=== PATIENT | female | born 1955 | race Caucasian/White ===

== ENCOUNTER 2018-10-01 16:47 | Emergency (ER) | payer MEDICARE, OTHER ==
[~2018-10-01] VITALS: Ht 165.1 cm; Wt 90.6 kg
[2018-10-01 17:21] VITALS: Ht 165.1 cm; Wt 90.6 kg
[2018-10-01] MEDS ORDERED: MED4DP PO (18:59)
[2018-10-01] MEDS ORDERED: BEN25 PO (18:59)
[2018-10-01] MEDS ORDERED: DEXAMETHASONE 10 MG/ML 1 ML INJ IM ONE (19:00)
[2018-10-01] MEDS ORDERED: DIPHENHYDRAMINE 25 MG CAP PO ONE (19:00)
[2018-10-01] MEDS ORDERED: FAMOTIDINE 20 MG TAB PO ONE (19:00)
[2018-10-01 20:10] VITALS: BP 142/79; PULSE 65; RESP 16
--- NOTE | 2018-10-01 20:10 | ERD ---
ER Documentation Chief Complaint Chief Complaint GENERALIZED BODY RASH X10 DAYS HPI 63-year-old female with no reported past medical history who presents with complaint of generalized body rash over the past 10 days. Rash is somewhat pruritic per patient but nontender. First noticed a rash on left lower abdomen which subsequently spread to his trunk, bilateral upper extremities, bilateral thighs. She otherwise denies fever, chills, new medication use, antibiotic use, new skin products use, shortness of breath, dyspnea, angioedema, chemical or toxic exposures, sick contacts at home. ROS All systems reviewed and are negative except as per history of present illness. Medications Home Meds Active Scripts Diphenhydramine Hcl* (Benadryl*) 25 Mg Cap, 25 MG PO Q6, #14 CAP Prov:JEUDINE,GETHO PA-C 10/01/18 Methylprednisolone* (Medrol* DOSE PACK) 4 Mg/Dose-Pack Tab.ds.pk, 4 MG PO . DIRECTED for 1 Day, PACKET Prov:JEUDINE,GETHO PA-C 10/01/18 Allergies Allergies: Coded Allergies: amoxicillin (Verified Allergy, Unknown, 10/01/18) PMhx/Soc Medical and Surgical Hx: pt denies Medical Hx, pt denies Surgical Hx Hx Alcohol Use: No Hx Substance Use: No Hx Tobacco Use: No Smoking Status: Never smoker FmHx Family History: No diabetes, No coronary disease, No other Physical Exam Vitals Vital Signs Date Temp Pulse Resp B/P (MAP) Pulse Ox O2 O2 Flow FiO2 Time Delivery Rate 10/01/18 97.5 60 16 163/97 96 17:21 (119) Physical Exam Const: No acute distress Head: Atraumatic Eyes: Normal Conjunctiva ENT: Normal External Ears, Nose and Mouth. Neck: Full range of motion. No meningismus. Resp: Clear to auscultation bilaterally Cardio: Regular rate and rhythm, no murmurs Abd: Soft, non tender, non distended. Normal bowel sounds Skin: No petechiae or rashes Back: No midline or flank tenderness Diffuse nonconfluent pinpoint erythematous blanching papular rash predominately over thorax, b/l UE extremities and b/l thighs. Pruritic, nontender, non discharge, some with overlying excoriations without evidence of cellulitis or superinfection. No tenderness to palpation. Negative nikolskys. No predominance over flexor creases. No involvement of nails or web spaces of hands. Ext: No cyanosis, or edema Neur: Awake and alert Psych: Normal Mood and Affect Results 24 hrs Current Medications Medications Dose Sig/Ridge Start Time Status Last (Trade) Ordered Route PRN Stop Time Admin Dose Reason Admin Famotidine 20 mg ONCE ONCE 10/01/18 DC 10/01/18 (Pepcid) PO 19:00 19:02 10/01/18 19:01 25 mg ONCE ONCE 10/01/18 DC 10/01/18 Diphenhydrami PO 19:00 19:02 ne HCl 10/01/18 19:01 (Benadryl) 10 mg ONCE ONCE 10/01/18 DC 10/01/18 Dexamethasone IM : 19:02 (Decadron) 10/01/18 19:01 Procedures/MDM This 63-year-old female presents with diffuse rash. Patient is afebrile with no reported systemic signs of infection. No reports of respiratory compromise. Symptoms likely secondary to allergic types nonspecific skin eruption. I have low suspicion for acute process warranting further emergent work-up or care. Patient symptoms improved with steroids and Benadryl. Patient instructed to follow-up with her PMD. Precautions explained in detail to patient as well as family member. DISPOSITION PLAN: We discussed follow up with the patient's primary care doctor within 24 to 48 hours. Patient counseled regarding my diagnostic impression and care plan. Prior to discharge all questions answered. Pt agrees with treatment plan and understands strict return precautions. Precautionary instructions provided including instructions to return to the ER if not improving or for any worsening or changing symptoms or concerns. Disclaimer: Inadvertent spelling and grammatical errors are likely due to EHR/dictation software use and do not reflect on the overall quality of patient care. Also, please note that the electronic time recorded on this note does not necessarily reflect the actual time of the patient encounter. Departure Diagnosis: Primary Impression: Rash and other nonspecific skin eruption Condition: Stable Patient Instructions: Self-Care for Skin Rashes Referrals: COMMUNITY CLINICS YOU HAVE RECEIVED A MEDICAL SCREENING EXAM AND THE RESULTS INDICATE THAT YOU DO NOT HAVE A CONDITION THAT REQUIRES URGENT TREATMENT IN THE EMERGENCY DEPARTMENT. FURTHER EVALUATION AND TREATMENT OF YOUR CONDITION CAN WAIT UNTIL YOU ARE SEEN IN YOUR DOCTORS OFFICE WITHIN THE NEXT 1-2 DAYS. IT IS YOUR RESPONSIBILITY TO MAKE AN APPOINTMENT FOR FOLOW-UP CARE. IF YOU HAVE A PRIMARY DOCTOR --you should call your primary doctor and schedule an appointment IF YOU DO NOT HAVE A PRIMARY DOCTOR YOU CAN CALL OUR PHYSICIAN REFERRAL HOTLINE AT IF YOU CAN NOT AFFORD TO SEE A PHYSICIAN YOU CAN CHOSE FROM THE FOLLOWING [facility] [address] [facility] [address] [facility] [facility] [address] [facility] [address] [facility] [address] [facility]. [facility] [address] Additional Instructions: Call your primary care doctor TOMORROW for an appointment during the next 2-3 days.See the doctor sooner or return here if your condition worsens before your appointment time. BRAD ZEPEDA PA-C October 01, 2018 20:10
== END 2018-10-01 20:10 | disposition home or self-care (01) ==
LOC: FTE 16:47
DX: R21 Rash and other nonspecific skin eruption (principal)
CPT/HCPCS: 96372; 99284; J1100